=== PATIENT | female | born 1965 | race Caucasian/White ===

== ENCOUNTER 2017-10-31 11:37 | Emergency (ER) | payer OTHER ==
[~2017-10-31] VITALS: Ht 149.9 cm; Wt 74.4 kg
[~2017-10-31 11:37] MED LIST: GABA100C; INSLANTI; INSLISPI; LISI-646
[2017-10-31 14:28] VITALS: BP 140/60
== END 2017-10-31 14:33 | disposition home or self-care (01) ==
LOC: ER 11:37
DX: S46.812A Strain of other muscles, fascia and tendons at shoulder and upper arm level, left arm, initial encounter (principal); S29.011A Strain of muscle and tendon of front wall of thorax, initial encounter; I10 Essential (primary) hypertension; E10.9 Type 1 diabetes mellitus without complications; Z90.710 Acquired absence of both cervix and uterus; W18.39XA Other fall on same level, initial encounter; Y93.89 Activity, other specified; Y99.8 Other external cause status; Y92.89 Other specified places as the place of occurrence of the external cause
CPT/HCPCS: 71101; 73030; 82962

== ENCOUNTER 2019-07-31 14:38 | Emergency (ER) | payer OTHER ==
[~2019-07-31] VITALS: Ht 152.4 cm; Wt 65.8 kg
[2019-07-31 15:04] VITALS: BP 118/56
[2019-07-31 15:27] LABS: Basophils # (auto) 0.1 10 ^3/uL (0-0.2); Basophils % (auto) 0.5 % (0.0-2.0); Eosinophils # (auto) 0.1 10 ^3/uL (0-0.8); Eosinophils % (auto) 1.4 % (0.0-7.0); Hemoglobin 10.1 g/dL (12.2-16.2); Lymphocytes # (auto) 1.2 10 ^3/uL (0.4-5.4); Lymphocytes % (auto) 12.2 % (10.0-50.0); Mean Corpuscular Hemoglobin 28.6 pg (28.0-32.0); Mean Corpuscular Hgb Conc. 33.9 g/dL (32.0-36.0); Mean Corpuscular Volume 84.5 fL (80.0-100.0); Monocytes # (auto) 0.6 10 ^3/uL (0-1.3); Monocytes % (auto) 6.4 % (0.0-12.0); Neutrophils % (auto) 79.5 % (37.0-80.0); Platelet Count (auto) 338 10^3/uL (140-450); Red Blood Cells 3.55 10^6/uL (4.0-5.20); Red Cell Distribution Width 14.2 % (11.8-14.3); White Blood Cell 10.1 10^3/uL (4.4-10.8)
[2019-07-31 15:50] LABS: Albumin 3.6 g/dL (3.4-5.0); Anion Gap 4 (5-15); Blood Urea Nitrogen 13 mg/dL (7-18); Calcium 8.8 mg/dL (8.5-10.1); Carbon Dioxide 28 mmol/L (21-32); Chloride 107 mmol/L (98-107); Glucose 131 mg/dL (74-106); Potassium 3.2 mmol/L (3.5-5.1); Sodium 139 mmol/L (136-145)
[2019-07-31 15:55] LABS: Alanine Aminotransferase 20 U/L (13-56); Alkaline Phosphatase 36 U/L (45-117); Aspartate Aminotransferase 16 U/L (15-37); BUN/Creatinine Ratio 9.4; Bilirubin, Total 0.2 mg/dL (0.2-1.0); GFR African American 51 mL/min; GFR Non-African American 43 mL/min; Total Protein 6.9 g/dL (6.4-8.2)
== END 2019-07-31 17:05 | disposition left against medical advice (07) ==
LOC: EDBD 14:38 → ER 14:38
DX: E16.2 Hypoglycemia, unspecified (principal); R53.1 Weakness; Z53.21 Procedure and treatment not carried out due to patient leaving prior to being seen by health care provider
CPT/HCPCS: 36415; 80053; 84484; 85025

== ENCOUNTER 2023-05-09 12:58 | Emergency (ER) | payer MEDICAID, OTHER ==
[~2023-05-09] VITALS: Ht 149.9 cm; Wt 71.1 kg
[~2023-05-09 12:58] MED LIST changes: -LISI-646; +LISI20TA56
[2023-05-09 14:51] VITALS: BP 114/57; PULSE 79; RESP 18; TEMP 97.9; O2SAT 98
[2023-05-09] MEDS: KETOROLAC TROMETH 30 MG/ML 1ML VIAL IM ONE (15:16)
[2023-05-09] MEDS ORDERED: MELO-335 PO (15:34)
== END 2023-05-09 15:47 | disposition home or self-care (01) ==
LOC: ER 12:58
DX: M23.92 Unspecified internal derangement of left knee (principal)
CPT/HCPCS: 73562; 96372; 99283; J1885